=== PATIENT | male | born 2000 | race Caucasian/White ===

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

== ENCOUNTER 2021-02-13 18:31 | Emergency (ER) | payer MEDICAID ==
[~2021-02-13] VITALS: Ht 172.7 cm; Wt 90.7 kg
--- NOTE | 2021-02-13 19:05 | NUR ---
PT AMBULATED TO ER WITH C/O N/V AND ABDOMINAL PAIN PL:10/10. A/O X4, NO SOB OR LABORED BREATHING. DENIES CP/PRESSURE. CLEAR SPEECH, COMPLETE SENTENCES.
--- NOTE | 2021-02-13 19:08 | NUR ---
DR. VAIL AT BEDSIDE, MSE IN PROGRESS.
[2021-02-13] MEDS ORDERED: ONDANSETRON 4 MG/2 ML VIAL IV ONE (19:15)
[2021-02-13] MEDS ORDERED: IV NS 1000 ML 1,000 ML IV ONE (19:15)
[2021-02-13 19:29] LABS: HEMATOCRIT 43.7 % (36.7-47.1); MEAN CORPUSCULAR HEMOGLOBIN 31.4 uug (23.8-33.4); MEAN CORPUSCULAR VOLUME 88.9 fL (73.0-96.2); PLATELET COUNT (AUTO) 264 K/uL (152-348)
[2021-02-13 19:33] LABS: CREATININE 0.9 mg/dL (0.6-1.3); POTASSIUM 4.2 mmol/L (3.5-5.1)
[2021-02-13 19:39] LABS: BILIRUBIN,DIRECT 0.1 mg/dL (0.0-0.2); BILIRUBIN,TOTAL 0.5 mg/dL (0.2-1.0); TOTAL PROTEIN, SERUM 7.6 g/dL (6.4-8.2)
[2021-02-13] MEDS ORDERED: ONDANSETRON 4 MG/2 ML VIAL ONE (19:48)
[2021-02-13 20:16] LABS: *BILIRUBIN,URIN NEGATIVE (NEGATIVE); *CLARITY,URINE CLEAR (CLEAR); *COLOR,URINE YELLOW (YELLOW); *KETONES,URINE NEGATIVE (NEGATIVE); LEUKOCYTE ESTERASE ,URINE NEGATIVE (NEGATIVE); NITRITE, URINE NEGATIVE (NEGATIVE); UGLUCOSE NEGATIVE (NEGATIVE)
[2021-02-13 20:17] LABS: *BLOOD, URINE NEGATIVE (NEGATIVE)
[2021-02-13 20:22] LABS: BACTERIA,URINE NONE SEEN /HPF (NONE SEEN); RBC,URINE 0-3 /HPF (0-3); SQUAMOUS EPITHELIAL CELL,UR FEW /HPF (NONE SEEN); URINE AMORPHOUS PHOSPHATES FEW /HPF; WBC,URINE 0-3 /HPF (0-3)
[2021-02-13 20:23] LABS: MUCUS,URINE FEW /LPF (0-FEW)
--- NOTE | 2021-02-13 20:30 | NUR ---
PT TAKEN DOWN FOR CT.
--- NOTE | 2021-02-13 20:40 | NUR ---
PT RETURNED FROM CT.
[2021-02-13] MEDS ORDERED: ONDA4TAB11 PO (22:06)
--- NOTE | 2021-02-13 22:15 | NUR ---
Patient discharged to home in stable condition. A/O x4 no SOB or labored breathing. Denies pain/discomfort. No n/v/d. Written and verbal after care instructions given. Patient verbalizes understanding of instructions. Stressed follow up or return to ER for worsening s/s. Steady gait.
[2021-02-13 22:16] VITALS: BP 122/57
== END 2021-02-13 22:17 | disposition home or self-care (01) ==
LOC: ER 18:33
DX: R10.9 Unspecified abdominal pain (principal); R11.10 Vomiting, unspecified; R19.7 Diarrhea, unspecified; Z20.822 Contact with and (suspected) exposure to COVID-19; R53.1 Weakness
CPT/HCPCS: 36415; 74177; 80048; 80076; 81001; 83690; 85025; 87426; 96361; 96374; 99285; J2405; Q9967; A4663; J7030; J7050

== ENCOUNTER 2022-01-04 00:39 | Emergency (ER) | payer MEDICAID ==
[~2022-01-04] VITALS: Ht 177.8 cm; Wt 95.3 kg
[~2022-01-04 00:39] MED LIST: ONDA4TAB11 PO
[2022-01-04] MEDS ORDERED: PROCHLORPERAZINE EDISYLATE 10 MG/2 ML VIAL IV ONE (01:15)
[2022-01-04] MEDS ORDERED: IV NORMAL SALINE 1000 ML BAG IV ONE (01:15)
[2022-01-04] MEDS ORDERED: HYDROMORPHONE 1 MG/1 ML DISP.SYRIN IV ONE (01:15)
[2022-01-04] MEDS ORDERED: PROCHLORPERAZINE EDISYLATE 10 MG/2 ML VIAL ONE (01:15)
[2022-01-04] MEDS ORDERED: HYDROMORPHONE 2 MG/1 ML DISP.SYRIN ONE (01:16)
[2022-01-04] MEDS ORDERED: IV NORMAL SALINE 250 ML IV ONE (01:17)
[2022-01-04] MEDS ORDERED: SWABABLE VALVE TRANSFER SET EA MC ONE (01:17)
[2022-01-04] MEDS ORDERED: IOHEXOL 300MG/ML 100 ML INFUS..BTL ONE (01:17)
[2022-01-04 01:34] LABS: CREATININE 1.2 mg/dL (0.6-1.3)
[2022-01-04 01:40] LABS: BILIRUBIN,DIRECT 0.1 mg/dL (0.0-0.2); BILIRUBIN,TOTAL 0.7 mg/dL (0.2-1.0); TOTAL PROTEIN, SERUM 8.6 g/dL (6.4-8.2)
[2022-01-04 01:45] LABS: HEMATOCRIT 42.4 % (36.7-47.1); MEAN CORPUSCULAR HEMOGLOBIN 32.3 uug (23.8-33.4); MEAN CORPUSCULAR VOLUME 87.6 fL (73.0-96.2); PLATELET COUNT (AUTO) 272 K/uL (152-348)
[2022-01-04 01:52] LABS: *BILIRUBIN,URIN NEGATIVE (NEGATIVE); *BLOOD, URINE NEGATIVE (NEGATIVE); *CLARITY,URINE CLEAR (CLEAR); *COLOR,URINE YELLOW (YELLOW); *KETONES,URINE NEGATIVE (NEGATIVE); *UROBILINOGEN,URINE 0.2 E.U./dl (NORMAL); LEUKOCYTE ESTERASE ,URINE NEGATIVE (NEGATIVE); NITRITE, URINE NEGATIVE (NEGATIVE); PH,URINE 7.5 (5.0-8.0); UGLUCOSE NEGATIVE (NEGATIVE)
--- NOTE | 2022-01-04 02:30 | NUR ---
Patient sleeping with no distress noted.
--- NOTE | 2022-01-04 03:00 | NUR ---
Patient stating "I feel better now."
--- NOTE | 2022-01-04 03:10 | NUR ---
Patient able to drink 300ml of water with no N/V noted.
--- NOTE | 2022-01-04 03:13 | NUR ---
Dr Fernandes into re eval patient.
--- NOTE | 2022-01-04 03:20 | NUR ---
IV removed. Catheter intact and site benign. Pressure and 4x4 gauze applied to site. No bleeding noted.
[2022-01-04] MEDS ORDERED: PROC10TA29 PO (03:21)
[2022-01-04] MEDS ORDERED: OXYC-128 PO (03:21)
[2022-01-04 03:39] VITALS: BP 122/68
--- NOTE | 2022-01-04 03:40 | NUR ---
Patient discharged to home in stable condition with family taking patient home. Written and verbal after care instructions given. Patient verbalizes understanding of instructions. Stressed follow up or return to ER for worsening s/s.
== END 2022-01-04 03:40 | disposition home or self-care (01) ==
LOC: ER 00:44
DX: K52.9 Noninfective gastroenteritis and colitis, unspecified (principal); K20.90 Esophagitis, unspecified without bleeding; R00.0 Tachycardia, unspecified; Z86.16 Personal history of COVID-19
CPT/HCPCS: 36415; 74177; 80048; 80076; 81003; 83605; 83735; 85025; 93005; 96361; 96374; 96375; 99285; J0780; J1170; J7040; Q9967; A4663

== ENCOUNTER 2022-08-07 02:30 | Emergency (ER) | payer MEDICAID ==
[~2022-08-07] VITALS: Ht 177.8 cm; Wt 90.7 kg
[~2022-08-07 02:30] MED LIST changes: +OXYC-128 PO; +PROC10TA29 PO
[2022-08-07] MEDS ORDERED: OXYCODONE/APAP 5-325 MG TABLET PO ONE (04:45)
[2022-08-07] MEDS ORDERED: OXYCODONE/APAP 5-325 MG TABLET ONE (04:59)
[2022-08-07 05:22] LABS: HEMATOCRIT 43.8 % (36.7-47.1); MEAN CORPUSCULAR HEMOGLOBIN 32.2 uug (23.8-33.4); MEAN CORPUSCULAR VOLUME 92.3 fL (73.0-96.2); PLATELET COUNT (AUTO) 212 K/uL (152-348)
[2022-08-07 05:24] LABS: POTASSIUM 3.7 mmol/L (3.5-5.1)
[2022-08-07] MEDS ORDERED: HYDR-3972 PO (06:07)
[2022-08-07 07:29] VITALS: BP 127/76
--- NOTE | 2022-08-07 07:30 | NUR ---
Patient discharged to home in stable condition. Written and verbal after care instructions given. Patient verbalizes understanding of instructions. Stressed follow up or return to ER for worsening s/s.
== END 2022-08-07 07:31 | disposition home or self-care (01) ==
LOC: ER 02:30
DX: J20.8 Acute bronchitis due to other specified organisms (principal); R04.2 Hemoptysis; F17.210 Nicotine dependence, cigarettes, uncomplicated
CPT/HCPCS: 36415; 71045; 85025; 85730; A4663

== ENCOUNTER 2023-11-30 01:38 | Emergency (ER) | payer MEDICAID ==
[~2023-11-30] VITALS: Ht 177.8 cm; Wt 68.0 kg
[~2023-11-30 01:38] MED LIST changes: +HYDR-3972 PO
[2023-11-30] MEDS ORDERED: CABENUVA IM (02:05)
[2023-11-30] MEDS ORDERED: PIPERACILLIN/TAZOBACTAM/D5W 50 ML IV ONE (02:46)
[2023-11-30] MEDS ORDERED: VANCOMYCIN IV 200 ML ONE (02:46)
[2023-11-30] MEDS: PIPERACILLIN SODIUM/TAZOBACTAM 3.375 G in IV DEXTROSE 5% 50 ML IV ONE (02:50)
[2023-11-30 02:58] LABS: BASOPHILS % (AUTO) 0.3 % (0.0-2.0); EOSINOPHILS # (AUTO) 0.1 K/uL (0.0-0.7); EOSINOPHILS % (AUTO) 1.5 % (0.0-7.0); HEMATOCRIT 40.5 % (36.7-47.1); HEMOGLOBIN 14.4 g/dL (12.5-16.3); LYMPHOCYTES # (AUTO) 1.7 K/uL (0.8-4.8); LYMPHOCYTES % (AUTO) 18.1 % (20.5-51.5); MEAN CORPUSCULAR HEMOGLOBIN 31.9 uug (23.8-33.4); MEAN CORPUSCULAR HGB CONC 36 g/dL (32.5-36.3); MEAN CORPUSCULAR VOLUME 89.7 fL (73.0-96.2); MONOCYTES # (AUTO) 0.7 K/uL (0.1-1.30); MONOCYTES % (AUTO) 7.7 % (0.0-11.0); NEUTROPHILS # (AUTO) 6.6 K/uL (1.8-8.9); NEUTROPHILS % (AUTO) 72.4 % (38.5-71.5); PLATELET COUNT (AUTO) 202 K/uL (152-348); RED BLOOD CELL COUNT(AUTO) 4.52 MIL/uL (4.06-5.63); RED CELL DISTRIBUTION WIDTH 12.9 % (12.1-16.2); WHITE BLOOD COUNT (AUTO) 9.1 K/uL (3.6-10.2)
[2023-11-30 03:04] LABS: DIFFERENTIAL COMMENT 1
[2023-11-30 03:18] LABS: ALANINE AMINOTRANSFERASE 27 U/L (16-63); ALBUMIN 3.9 g/dL (3.4-5.0); ALKALINE PHOSPHATASE 89 U/L (50-136); ASPARTATE AMINOTRANSFERASE 15 U/L (15-37); BILIRUBIN,DIRECT 0.1 mg/dL (0.0-0.2); BILIRUBIN,TOTAL 0.6 mg/dL (0.2-1.0); CALCIUM 8.2 mg/dL (8.5-10.1); CARBON DIOXIDE 30 mmol/L (21-32); CHLORIDE 103 mmol/L (98-107); GLUCOSE 75 mg/dL (74-106); POTASSIUM 3.6 mmol/L (3.5-5.1); SODIUM SERUM 143 mmol/L (136-145); TOTAL PROTEIN, SERUM 7.7 g/dL (6.4-8.2); UREA NITROGEN, BLOOD 10 mg/dL (7-18)
[2023-11-30] MEDS ORDERED: IOHEXOL 300 MG/ML 10 ML VIAL ONE (03:29)
[2023-11-30] MEDS ORDERED: IOHEXOL 300MG/ML 100 ML INFUS..BTL ONE (03:33)
[2023-11-30] MEDS ORDERED: SWABABLE VALVE TRANSFER SET EA MC ONE (03:33)
[2023-11-30] MEDS ORDERED: IV NORMAL SALINE 250 ML IV ONE (03:33)
[2023-11-30] MEDS: VANCOMYCIN IV 1,000 MG in IV DEXTROSE 5% 250 ML IV ONE (03:50)
[2023-11-30] MEDS ORDERED: diphenhydrAMINE 50 MG/1 ML VIAL ONE (04:48)
[2023-11-30] MEDS: diphenhydrAMINE 50 MG/1 ML VIAL IV ONE (04:50)
[2023-11-30] MEDS ORDERED: SULF1TAB48 PO (04:51)
[2023-11-30 05:07] VITALS: BP 131/73; O2SAT 98
== END 2023-11-30 05:00 | disposition home or self-care (01) ==
LOC: ER 01:43
DX: L02.212 Cutaneous abscess of back [any part, except buttock and flank] (principal); F17.210 Nicotine dependence, cigarettes, uncomplicated; Z79.899 Other long term (current) drug therapy
CPT/HCPCS: 99285; 74177; 96365; 96375 ×2; 80076; 80048; 85025; 84145; 85651; 85730; 87040 ×2; 84484; 36415; 83605; J1200; Q9967 ×2; J2543; J3370; A4606; A4663